=== PATIENT | female | born 1985 | race African-American/Black ===

== ENCOUNTER 2016-09-20 20:06 | Emergency (ER) | payer OTHER ==
[~2016-09-20] VITALS: Ht 160 cm; Wt 71.0 kg
[~2016-09-20 20:06] MED LIST: IBUP-103 PO; OXYC1TAB3 PO
[2016-09-20 20:11] VITALS: TEMP 37.2; Ht 160 cm; Wt 71.0 kg
[2016-09-20] MEDS ORDERED: SODIUM CHLORIDE 0.9% 1000ML 1,000 ML IV STA ×2 (20:27)
[2016-09-20] MEDS ORDERED: ONDANSETRON INJ 2 MG/ML 2 ML VIAL IV STA (20:27)
[2016-09-20] MEDS ORDERED: KETOROLAC TROMETHAMINE 30 MG/ML VIAL IV STA (20:27)
[2016-09-20] MEDS ORDERED: [UNRECOGNIZED DRUG - CODE] PO (20:32)
[2016-09-20] MEDS ORDERED: NORT10CA2 PO (20:32)
[2016-09-20 20:55] LABS: BASO % 0.1 %; BASO ABS # 0.01 K/uL (0-0.2); COMPLETE YES; EOS % 0.9 %; HEMATOCRIT 39.6 % (37-47); IG% 0.2 %; LYMPH % 11.7 %; LYMPH ABS # 0.94 K/uL (1.2-3.4); MEAN CELL VOLUME 85.3 fL (80-100); MEAN CORPUSCULAR HGB CONC 35.1 g/dl (32-36); MONO % 5.9 %; NEUT % 81.2 %; PLATELET COUNT 261 K/uL (130-400); RED BLOOD COUNT 4.64 M/uL (4.2-5.4); WHITE BLOOD COUNT 8.01 K/uL (4.8-10.8)
--- NOTE | 2016-09-20 20:57 | EMERGENCY ROOM VISIT NOTE ---
History Report prepared by Kavya: [place] Under the Supervision of: Dr. Rikki Duque M.D. First contact with patient: 20:15 Chief Complaint: ABDOMINAL PAIN Stated Complaint: SHARP PAINS IN RIGHT SIDE OF STOMACH, SORE THROAT History of Present Illness The patient is a 31 year old female who presents to the Emergency Room with complaints of intermittent right sided abdominal pain starting 4 days ago. The patient describes it to be a sharp pain. She has worsening pain with exhaling. She denies any changes in her pain with movement or eating. She also complains of nausea and constipation. Her last bowel movement was this morning. About 4 days ago, the patient also starting having an increased frequency of urination. 2 days ago, she was prescribed Macrobid. Since she started taking the Macrobid, she reports her abdominal pain has worsened. She also complains of nasal congestion and sore throat. She reports a loss of appetite. The patient denies fevers, chills, vomiting, vaginal discharge, or any other complaints. She denies any chance of . She has had 4 pregnancies, 2 abortions, and she has 2 children. She denies any history of any surgeries. The patient denies any personal history of ovarian cyst or kidney stones. She also does not have a family history of kidney stones. Source of History: patient Onset: 4 days ago Position: abdomen (right sided) Quality: sharp Timing: intermittent, worsening Modifying Factors (Worsening): other (exhaling) Associated Symptoms: + nausea, + sorethroat, No chills, No fevers, No vomiting Review of Systems See HPI for pertinent positives & negatives. A total of 10 systems reviewed and were otherwise negative. Past Medical & Surgical Surgical Problems: (1) History of mandibular surgery Family History No pertinent family history Social History Smoking Status: Current Every Day Smoker Drug Use: none Housing Status: lives alone Occupation Status: unemployed Current/Historical Medications Scheduled Nitrofurantoin Monohyd Macrocr (Nitrofurantoin Monohydrat), 100 MG PO BID Nortriptyline (Pamelor), 20 MG PO HS Scheduled PRN Sennosides-Docusate Sodium (Senokot S), 2 TAB PO TIDM PRN for Constipation Allergies Coded Allergies: No Known Allergies (Unverified , 09/20/16) Physical Exam Vital Signs Date Time Temp Pulse Resp B/P Pulse Ox O2 Delivery O2 Flow Rate FiO2 1/26/17 22:33 72 20 123/77 99 09/20/16 22:33 77 20 123/77 99 09/20/16 21:50 95 20 90/49 100 Room Air 09/20/16 20:11 37.2 113 16 110/65 100 Room Air Physical Exam GENERAL: Patient is in no acute distress. HEENT: No acute trauma, normocephalic atraumatic, throat erythema bilaterally without exudates, no peritonsillar abscess, mucous membranes moist, significant nasal congestion, no scleral icterus. NECK: No stridor, no adenopathy, no meningismus, trachea is midline. LUNGS: Clear to auscultation bilaterally, no wheeze, no rhonchi, breath sounds equal. HEART: Mildly tachycardic with a regular rhythm, no murmurs. ABDOMEN: Soft, absolutely no tenderness by my exam, bowel sounds positive, no hernias, no peritonitis. EXTREMITIES: No cyanosis or edema, full range of motion of all the joints without pain or difficulty, no signs for acute trauma. NEUROLOGIC: Oriented x 3, no acute motor or sensory deficits, no focal weakness. SKIN: No rash, no jaundice, no diaphoresis. Medical Decision & Procedures ER Provider Diagnostic Interpretation: X ray results and stated below per my interpretation and radiologist interpretation. US results and stated below per my review and radiologist interpretation: ABDOMEN 2VIEW W/PA CHEST RTN CLINICAL HISTORY: Right-sided abdominal pain COMPARISON STUDY: No previous studies for comparison. FINDINGS: The erect chest reveals no free air. There is no focal pulmonary consolidation. Erect and supine views the abdomen reveal no abnormally dilated loops of large or small bowel. There are no transition zones indicate bowel obstruction. No abnormal abdominal calcifications are visualized. IMPRESSION: No evidence of bowel obstruction. No evidence of free air. Electronically signed by: Derrick Bowman M.D. 09/20/2016 9:39 PM Dictated Date/Time: 09/20/2016 9:39 PM EXAMINATION: RENAL ULTRASOUND CLINICAL HISTORY: Right flank pain and urinary frequency COMPARISON STUDY: None FINDINGS: The right kidney measures 10.3 cm. The left kidney measures 9.7 cm. There is no evidence of hydronephrosis. There are no renal masses. The bladder was underdistended the time of scanning. IMPRESSION : No renal masses identified. No evidence of hydronephrosis. Electronically signed by: Derrick Bowman M.D. 09/20/2016 9:36 PM Dictated Date/Time: 09/20/2016 9:35 PM Laboratory Results 09/20/16 20:40 Red Blood Count 4.64, Mean Corpuscular Volume 85.3, Mean Corpuscular Hemoglobin 30.0, Mean Corpuscular Hemoglobin Concent 35.1, Mean Platelet Volume 9.0, Neutrophils (%) (Auto) 81.2, Lymphocytes (%) (Auto) 11.7, Monocytes (%) (Auto) 5.9, Eosinophils (%) (Auto) 0.9, Basophils (%) (Auto) 0.1, Neutrophils # (Auto) 6.50, Lymphocytes # (Auto) 0.94, Monocytes # (Auto) 0.47, Eosinophils # (Auto) 0.07, Basophils # (Auto) 0.01 09/20/16 20:40 Test 09/20/16 20:40 White Blood Count 8.01 K/uL (4.8-10.8) Red Blood Count 4.64 M/uL (4.2-5.4) Hemoglobin 13.9 g/dL (12.0-16.0) Hematocrit 39.6 % (37-47) Mean Corpuscular Volume 85.3 fL (80-100) Mean Corpuscular Hemoglobin 30.0 pg (25-34) Mean Corpuscular Hemoglobin Concent 35.1 g/dl (32-36) Platelet Count 261 K/uL (130-400) Mean Platelet Volume 9.0 fL (7.4-10.4) Neutrophils (%) (Auto) 81.2 % Lymphocytes (%) (Auto) 11.7 % Monocytes (%) (Auto) 5.9 % Eosinophils (%) (Auto) 0.9 % Basophils (%) (Auto) 0.1 % Neutrophils # (Auto) 6.50 K/uL (1.4-6.5) Lymphocytes # (Auto) 0.94 K/uL (1.2-3.4) Monocytes # (Auto) 0.47 K/uL (0.11-0.59) Eosinophils # (Auto) 0.07 K/uL (0-0.5) Basophils # (Auto) 0.01 K/uL (0-0.2) RDW Standard Deviation 40.0 fL (36.4-46.3) RDW Coefficient of Variation 12.8 % (11.5-14.5) Immature Granulocyte % (Auto) 0.2 % Immature Granulocyte # (Auto) 0.02 K/uL (0.00-0.02) Urine Color YELLOW Urine Appearance CLEAR (CLEAR) Urine pH 5.5 (4.5-7.5) Urine Specific Alsey 1.024 (1.000-1.030) Urine Protein NEG (NEG) Urine Glucose (UA) NEG (NEG) Urine Ketones 1+ (NEG) Urine Occult Blood TRACE (NEG) Urine Nitrite NEG (NEG) Urine Bilirubin NEG (NEG) Urine Urobilinogen NEG (NEG) Urine Leukocyte Esterase NEG (NEG) Urine WBC (Auto) 1-5 /hpf (0-5) Urine RBC (Auto) 5-10 /hpf (0-4) Urine Hyaline Casts (Auto) 1-5 /lpf (0-5) Urine Epithelial Cells (Auto) >30 /lpf (0-5) Urine Bacteria (Auto) 2+ (NEG) Urine Test NEG (NEG) Anion Gap 10.0 mmol/L (3-11) Est Creatinine Clear Calc Drug Dose 90.3 ml/min Estimated GFR () 105.1 Estimated GFR (Non- 90.7 BUN/Creatinine Ratio 10.1 (10-20) Calcium Level 8.5 mg/dl (8.5-10.1) Total Bilirubin 0.2 mg/dl (0.2-1) Aspartate Amino Transf (AST/SGOT) 28 U/L (15-37) Alanine Aminotransferase (ALT/SGPT) 43 U/L (12-78) Alkaline Phosphatase 62 U/L (45-117) Total Protein 7.0 gm/dl (6.4-8.2) Albumin 3.5 gm/dl (3.4-5.0) Globulin 3.5 gm/dl (2.5-4.0) Albumin/Globulin Ratio 1.0 (0.9-2) Lipase 139 U/L (73-393) Laboratory results reviewed by me. Medications Administered Medications (Trade) Dose Ordered Sig/Angela Route Start Time Stop Time Status Last Admin Dose Admin Ondansetron HCl 4 mg 4 mg NOW STAT IV 09/20/16 20:27 09/20/16 20:30 DC 09/20/16 20:56 4 MG Sodium Chloride 1,000 ml @ 200 mls/hr Q5H STAT IV 09/20/16 20:27 09/21/16 01:26 09/20/16 21:54 200 MLS/HR Sodium Chloride (Nss 1000ml) 1,000 ml @ 999 mls/hr Q1H1M STAT IV 09/20/16 20:27 09/20/16 21:27 DC 09/20/16 20:57 999 MLS/HR Ketorolac Tromethamine (Toradol Inj) 30 mg NOW STAT IV 09/20/16 20:27 09/20/16 20:30 DC 09/20/16 20:56 30 MG Senna/Docusate Sodium (Senokot S Tab) 2 tab NOW ONCE PO 09/20/16 22:15 09/20/16 22:16 DC 09/20/16 22:27 2 TAB ED Course 2015: The patient was evaluated in room B08. A complete history and physical exam was performed. 2026: Toradol Inj 30 mg IV, Sodium Chloride 1000 ml @ 999 mls/hr IV, Sodium Chloride 1000 ml @ 200 mls/hr IV, Zofran Inj 4 mg IV 2212: Reevaluated the patient. Discussed results and discharge instructions: She verbalized understanding and agreement. The patient is ready for discharge. 2215: Senokot S Tab 2 tab PO Medical Decision Differential diagnosis includes but is not limited to constipation, viral illness, pyelonephritis, UTI, ovarian cyst, appendicitis, strep pharyngitis, , failed outpatient treatment. There is no leukocytosis or concerning anemia. No significant electrolyte abnormally, kidney failure, hepatitis pancreatitis. Urinalysis shows contamination, no obvious infection. Urine culture is pending. testing is negative. Renal ultrasound does not show hydronephrosis or any evidence of ureteral obstruction. Obstruction series shows no bowel obstruction or pneumonia, there is no free air. Constipation was noted. The patient received IV Toradol, IV saline and IV Zofran, she feels improved. She was given 2 tablets of Senokot. The patient is doing well, I suspect her colicky abdominal pain is from constipation. Her pharyngitis and nasal congestion is likely secondary to a URI. Of note, I did perform a strep test, this was negative. In regard to the potential urinary tract infection. She is on Macrobid and possibly, her urine is clear in appearance today because of the medication. She will continue this for the entire week course. The patient is being discharged on Senokot. She will return for worsening pain, fever or vomiting. She was reassured. She was discharged in stable condition. Impression Primary Impression: Right sided abdominal pain Additional Impressions: UTI (urinary tract infection) Constipation Pharyngitis Scribe Attestation The scribe's documentation has been prepared under my direction and personally reviewed by me in its entirety. I confirm that the note above accurately reflects all work, treatment, procedures, and medical decision making performed by me. Departure Information Dispostion Home / Self-Care Prescriptions Sennosides-Docusate Sodium (SENOKOT S) 1 Tab Tab 2 TAB PO TIDM Y for Constipation, #20 TAB Prov: Rikki Duque M.D. 09/20/16 Referrals Juma Barkley M.D.(WONG) (PCP) Forms HOME CARE DOCUMENTATION FORM, IMPORTANT VISIT INFORMATION, School Instructions, Work Instructions Patient Instructions My [facility] [employer] Additional Instructions continue the macrobid as directed until all---urine looked ok today stay well hydrated motrin/tylenol for pain senokot 2 tab with every meal until start having good bowel movements--decrease the amount of senokot to keep bowel regular but not diarrhea return for worsening symptoms or if not improving lab testing and kidney ultrasound today was ok Problem Qualifiers
[2016-09-20 21:13] LABS: BUN/CREATININE RATIO 10.1 (10-20); CALCIUM 8.5 mg/dl (8.5-10.1); CREATININE 0.86 mg/dl (0.60-1.20); POTASSIUM 3.4 mmol/L (3.5-5.1)
[2016-09-20 21:14] LABS: URINE APPEARANCE CLEAR (CLEAR); URINE BILIRUBIN NEG (NEG); URINE COLOR YELLOW; URINE EPITHELIAL CELL AUTO >30 /lpf (0-5); URINE NITRITE NEG (NEG); URINE PH 5.5 (4.5-7.5); URINE SPECIFIC GRAVITY 1.024 (1.000-1.030); UROBILINOGEN NEG (NEG); ZZUR CULT IF INDIC CLEAN CATCH YES
[2016-09-20 21:17] LABS: MANUAL MICROSCOPIC REQUIRED? NO; REVIEW REQ? NO
--- NOTE | 2016-09-20 21:38 | DIAGNOSTIC IMAGING REPORT ---
EXAMINATION: RENAL ULTRASOUND CLINICAL HISTORY: Right flank pain and urinary frequency COMPARISON STUDY: None FINDINGS: The right kidney measures 10.3 cm. The left kidney measures 9.7 cm. There is no evidence of hydronephrosis. There are no renal masses. The bladder was underdistended the time of scanning. IMPRESSION : No renal masses identified. No evidence of hydronephrosis. Electronically signed by: Derrick Bowman M.D. 09/20/2016 9:36 PM Dictated Date/Time: 09/20/2016 9:35 PM
--- NOTE | 2016-09-20 21:41 | DIAGNOSTIC IMAGING REPORT ---
ABDOMEN 2VIEW W/PA CHEST RTN CLINICAL HISTORY: Right-sided abdominal pain COMPARISON STUDY: No previous studies for comparison. FINDINGS: The erect chest reveals no free air. There is no focal pulmonary consolidation. Erect and supine views the abdomen reveal no abnormally dilated loops of large or small bowel. There are no transition zones indicate bowel obstruction. No abnormal abdominal calcifications are visualized. IMPRESSION: No evidence of bowel obstruction. No evidence of free air. Electronically signed by: Derrick Bowman M.D. 09/20/2016 9:39 PM Dictated Date/Time: 09/20/2016 9:39 PM
[2016-09-20] MEDS ORDERED: DOCUSATE SODIUM/SENNA 50/8.6MG TAB PO ONE (22:15)
[2016-09-20] MEDS ORDERED: SENN-65 PO (22:23)
[2016-09-20 22:33] VITALS: BP 123/77; PULSE 77; O2SAT 99
== END 2016-09-20 22:34 | disposition home or self-care (01) ==
LOC: C.EDB 20:08
DX: R10.9 Unspecified abdominal pain (principal); N39.0 Urinary tract infection, site not specified; K59.00 Constipation, unspecified; J02.9 Acute pharyngitis, unspecified